=== PATIENT | female | born 1990 | race Caucasian/White ===

== ENCOUNTER → 2019-06-11 14:35 | Outpatient (CLI) | payer OTHER, SELFPAY ==
[2019-06-12 12:44] LABS: Strep Grp B PCR NEG for Grp B Strep
== END ==
PROVIDERS: Visit Provider Family Medicine
DX: Z34.83 Encounter for supervision of other normal pregnancy, third trimester (principal); Z3A.36 36 weeks gestation of pregnancy
CPT/HCPCS: 87653

== ENCOUNTER 2019-07-02 18:05 | Observation (INO) | payer OTHER, SELFPAY ==
[2019-07-02] MEDS: miSOPROStoL 25 MCG TABLET VAG (19:57)
== END 2019-07-02 20:45 | disposition home or self-care (01) ==
LOC: LABOR 18:09
PROVIDERS: Admitting Provider Family Medicine; PCP Family Medicine; Referring Provider Family Medicine; Visit Provider Family Medicine
DX: O99.89 Other specified diseases and conditions complicating pregnancy, childbirth and the puerperium (principal); Z3A.39 39 weeks gestation of pregnancy
CPT/HCPCS: G0378; G0379

== ENCOUNTER 2019-07-03 06:38 | Inpatient (IN) | payer OTHER, SELFPAY ==
--- NOTE | 2019-07-03 07:17 | P.HP_ITS ---
History of Present Illness History of Present Illness Date Patient Seen: 07/03/19 Time Patient Seen: 07:18 Chief complaint: INDUCTION Narrative: 29-year-old female G4 para 2 estimated gestational age 0207/04/2019 consistent with LMP and early ultrasound. Patient is at the labor and delivery Center for induction of labor for comfort. Patient said increasing hip and back pain in the office. And wanted to proceed with elective induction of her labor. Patient came in last night to the center for Cytotec. She had change of her cervix she was 3 cm and melinda intermittently. So she was sent home to come back this morning for Pitocin. She says she has had a good night no fevers chills headaches. She has had intermittent contractions. No difficulty with nausea vomiting. On arrival to the center her vital signs are stable she is melinda intermittently and heart tones are category 1. care risk factors include ongoing sciatic and back pain. labs hemoglobin 11.0 hematocrit 34.6 glucose testing 130 urinalysis negative for infection hepatitis-B negative hep C negative rubella immune syphilis nonreactive blood type A positive antibody screen negative quad screen testing is negative for high risk urine and GC negative chlamydia negative HIV nonreactive negative. Patient had routine follow-up during . Normal weight gain during . Routine heart tones and 20 week ultrasound shows normal anatomy scan. Past history. Patient is she has 2 living children she has never smoked never drank alcohol does not use recreational drugs no history of genital herpes tuberculosis hepatitis-B or C HIV. Patient History Medical History Ectopic (Acute ~2009) Family & Social History Family History Grandmother Diabetes mellitus Mother Multiple gestation Social History: household members spouse,children Tobacco & Substance use: Smoking Status Never smoker alcohol intake never Meds Home Medications and Allergies Home Medications Medication Instructions Recorded Confirmed Type prenat.vits,loretta,[id number] 1 tab PO DAILY 05/14/19 06/30/19 History Allergies Allergy/AdvReac Type Severity Reaction Status Date / Time No Known Drug Allergies Allergy Verified 06/30/19 14:13 Exam Vital Signs (past 8 hours): . General: Alert no apparent distress. Affect is appropriate. Melinda it is uncomfortable. HEENT: Neck is supple without lymphadenopathy pupils equal round and reactive. Cardio: S1-S2 regular rate and rhythm. Respiratory: Lungs clear to auscultation. Abdomen: Gravid. : Head vertex 3 cm 70% effaced -2 station intact Extremities: Normal deep tendon reflexes trace edema. [place]: Melinda irregularly heart tones: Category 1 heart rate 135 Assessment & Plan Assessment & Plan narrative: G4 para 2 at 39 and 6 7th weeks gestational age for induction of labor. Reviewed induction with Pitocin. Risks benefits and complication of induction of labor including increased risks of and felt induction. Go ahead and proceed with induction consent was obtained. Consent was reviewed with the patient. Orders will be written for. Expectant management of the patient and labor care as per hospital protocol.
[2019-07-03] MEDS: LACTATED RINGERS 1,000 ML 100 ML IV (07:50)
[2019-07-03] MEDS: OXYTOCIN PREMIX 30 UNIT/500 ML PLAST..BAG IV (07:51)
--- NOTE | 2019-07-03 10:45 | PM.OBPNLAB ---
Date/Time Date Patient Seen: 07/03/19 Time Patient Seen: 10:45 Pain Control Pain control: tolerating well Pelvic Exam Effacement (%): 80 station: -2 Amniotic membrane status: Ruptured Comments: Rupture of membranes clear fluid Contractions Contractions on admission: regular Monitor mode: External Status status: Category l Assessment and Plan Assessment: induction ongoing Plan: continuous present management Comments: Doing well re-evaluation category 1 tracing vital signs are stable. Rupture of membranes with clear fluid. 3 cm 80% effaced -2 station. Continue with Pitocin. Epidural when requested by the patient.
[2019-07-03 10:57] LABS: Add Manual Diff / Slide Review NO; Basophils Absolute Auto 0 /uL (0-100); Basophils Percent Auto 0.3 % (0-2); Eosinophils Absolute Auto 100 /uL (0-450); Eosinophils Percent Auto 0.9 % (2-4); Hematocrit 36.2 % (36-46); Hemoglobin 11.7 g/dL (12.0-16.0); Lymphocytes Absolute Auto 2000 /uL (1100-4500); Lymphocytes Percent Auto 18.4 % (25-40); Mean Corpuscular HGB Conc 32.3 % (30-36); Mean Corpuscular Hemoglobin 25.3 PG (26-34); Mean Corpuscular Volume 78.1 fL (80-100); Monocytes Absolute Auto 800 /uL (0-900); Monocytes Percent Auto 7.4 % (3-14); Neutrophils Absolute Auto 7900 /uL (1500-7000); Platelet Count 259 X10^3/uL (150-400); Red Blood Cell Count 4.63 X10^6/uL (4.0-5.2); Red Cell Distribution Width 16.6 % (11.6-14.8); White Blood Cell Count 10.9 X10^3/uL (4.5-11.0)
--- NOTE | 2019-07-03 12:25 | PM.OBPNLAB ---
Date/Time Date Patient Seen: 07/03/19 Time Patient Seen: 12:07 Pain Control Pain control: tolerating well and epidural Pelvic Exam Dilation (cm): 5 Effacement (%): 90 station: -1 Amniotic membrane status: Ruptured Contractions Contractions on admission: regular Monitor mode: External Status status: Category ll Assessment and Plan Assessment: active labor and induction ongoing Comments: Patient just received epidural. Blood pressure slightly low. Category 2 heart tracing. With some variable decelerations as well as early is a. Patient getting a fluid bolus because of the decelerations and IV Pitocin has been stopped. Repositioned mom. No oxygen given at this point. Has I think variable decelerations will improve with position change IV fluid and stopping of the Pitocin. Will continue to monitor closely. Patient has made fairly good cervical change at this point.
--- NOTE | 2019-07-03 14:02 | P.PNOB_ITS ---
Date/Time Date Patient Seen: 07/03/19 Pain Control Pain control: tolerating well and epidural Pelvic Exam Dilation (cm): 6 Effacement (%): 90 station: -1 Amniotic membrane status: Ruptured Contractions Monitor mode: External Status status: Category ll Assessment and Plan Assessment: induction ongoing Plan: Comments: Patient category 2 tracing now for approximately an hour. She still 6 cm. Baby's -1 station. Have reposition mom multiple times. Stop Zosyn. IV fluid bolus in oxygen going. Discussed with mom and consented for . This is her 3rd baby. 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 Will try to expedite delivery. Patient is informed and wear. If heart tones are still category 2 to category 3 we will proceed with .
--- NOTE | 2019-07-03 14:04 | P.PCN_ITS ---
Procedures Date/Time Date of procedure: 07/03/19 Time of procedure: 14:04 General Procedure description: 29-year-old 4 para 2 39 weeks and 6 7 days with induction of labor a delivery of viable male infant Apgars 8 and 9. heart tracing is category 1 and category 2. Stage I of labor approximately 6 hours. Patient was brought into the hospital for induction of labor because of maternal discomfort. On arrival to the center. heart tones were category 1 mom's vital signs were stable. Consent was obtained for Pitocin induction of labor. During stage I of labor. Patient made adequate progress during stage I. She went from 3 cm to 4 cm and then had amniotomy of clear fluid. Afterwards her contractions became uncomfortable and she received an epidural anesthesia with good comfort. She continued to progress nicely. In approximately noon after epidural. Patient's category of heart tracing change from category 1 to category 2 with variable and then some early D cells then progressing to late T-cells. Patient is was re- examined and her cervix was found to be 6-7 cm. She then had rotation of body position and IV fluid bolus was given oxygen with given and her Pitocin was stopped. Her approximately 1 hour her category 2 tracing was closely monitored. And baby made for no further descent at 6 cm. At that point patient was discussed about potential operation for delivery of her baby because of category of tracing consent was obtained discussion and patient was made ready for the OR. As we were waiting for this mom felt more uncomfortable contractions and baby's head appeared turn and descend into the canal from -1 station to +1 station rather rapidly. And became complete. Stage II of labor approximately 10 minutes. Once mom became complete category tracing was 2. Mom pushed and baby was distended rapidly through the canal to complete and delivery of head in vertex position with occiput anterior. The delivery of the head there was a nuchal cord which was reduced over the top of the head and baby was delivered without difficulty after that. Baby was placed on the abdomen. Cord was cut and clamped after it decreased pulsating. The time of delivery baby had spontaneous cry vigorous good tone and color and Apgars were deemed to be 8 and 9. Stage III of labor. Patient was given IM post Pitocin 10 units. Fundal massage occurred. Expectant of cervix and vagina showed no significant lacerations delivery of intact placenta after 10 minutes. Mom and baby resting comfortably.
[2019-07-03 19:36] VITALS: BP 121/82
[2019-07-04] MEDS: IBUPROFEN 600 MG TABLET PO (01:48)
[2019-07-04 07:06] LABS: Hematocrit 35.8 % (36-46); Hemoglobin 11.3 g/dL (12.0-16.0)
[2019-07-04] MEDS: PRENATAL VIT,CALC/IRON/FOLIC 1 TABLET 1 TAB PO (08:50)
--- NOTE | 2019-07-04 08:51 | P.DS_ITS ---
History of Present Illness History of Present Illness Chief complaint: INDUCTION Narrative: 29-year-old female G4 para 2 estimated gestational age 0207/04/2019 consistent with LMP and early ultrasound. Patient is at the labor and delivery Center for induction of labor for comfort. Patient said increasing hip and back pain in the office. And wanted to proceed with elective induction of her labor. Patient came in last night to the center for Cytotec. She had change of her cervix she was 3 cm and melinda intermittently. So she was sent home to come back this morning for Pitocin. She says she has had a good night no fevers chills headaches. She has had intermittent contractions. No difficulty with nausea vomiting. On arrival to the center her vital signs are stable she is melinda intermittently and heart tones are category 1. care risk factors include ongoing sciatic and back pain. labs hemoglobin 11.0 hematocrit 34.6 glucose testing 130 urinalysis negative for infection hepatitis-B negative hep C negative rubella immune syphilis nonreactive blood type A positive antibody screen negative quad screen testing is negative for high risk urine and GC negative chlamydia negative HIV nonreactive negative. Patient had routine follow-up during . Normal weight gain during . Routine heart tones and 20 week ultrasound shows normal anatomy scan. Past history. Patient is she has 2 living children she has never smoked never drank alcohol does not use recreational drugs no history of genital herpes tuberculosis hepatitis-B or C HIV. Discharge Providers Provider Date of admission: 07/03/19 06:38 Primary care physician: Eudar Garcia MD Consults: 07/04/19 14:09 Consult to Cutter Operator Helper Routine Comment: Discharge provider: Eduar Garcia MD Summary Hospital Course Discharge Diagnosis: 29-year-old G4 para 3 term with induction of labor delivery of viable male infant Routine hospital post vaginal delivery care Hospital Course: Patient was admitted the hospital for induction of labor. Patient progressed nicely and delivered a viable male without complications. Post vaginal delivery care was at routine. Baby's vital signs were stable baby was afebrile breast-feeding well. Positive bowel movements and urination. Time of discharge weight 8 lb 5 oz. Mom feel comfortable with breast-feeding. [place] screening tests were pending at the time of this dictation. Exam Narrative Exam Narrative: Vitals: [Pulse 68 respiratory rate 18 temperature 9 8.8 input 2400 output 1800]. General: Alert no apparent distress. Affect is appropriate. Melinda it is uncomfortable. HEENT: Neck is supple without lymphadenopathy pupils equal round and reactive. Cardio: S1-S2 regular rate and rhythm. Respiratory: Lungs clear to auscultation. Abdomen: Uterus firm. Extremities: Normal deep tendon reflexes trace edema. Objective Labs Result Diagrams: 07/04/19 06:30 Labs: Laboratory Results - last 24 hr 07/03/19 07/03/19 07/04/19 10:35 10:35 06:30 WBC 10.9 RBC 4.63 Hgb 11.7 L 11.3 L Hct 36.2 35.8 L MCV 78.1 L MCH 25.3 L MCHC 32.3 RDW 16.6 H Plt Count 259 Neut % (Auto) 73.0 Lymph % (Auto) 18.4 L [place] % (Auto) 7.4 Eos % (Auto) 0.9 L Baso % (Auto) 0.3 Neut # (Auto) 7900 H Lymph # (Auto) 2000 [place] # (Auto) 800 Eos # (Auto) 100 Baso # (Auto) 0 Blood Type A Positive Antibody Screen Negative Discharge Plan Discharge Plan Patient Disposition: Home Discharge orders & Medications Prescriptions: No Action prenat.vits,loretta,[id number] Tablet 1 tab PO DAILY RF: 0 Follow up/Referrals: Eduar Garcia MD [Primary Care Provider] - Visit Report/Discharge Packet Visit Report Forms: Patient Portal/API, Stroke Signs & Symptoms Discharge Data Primary Care Provider: Eduar Garcia
[2019-07-04 09:15] VITALS: BP 115/71; PULSE 80; RESP 17; TEMP 36.3
== END 2019-07-04 12:20 | disposition home or self-care (01) | DRG 807 ==
PROVIDERS: Admitting Provider Family Medicine; PCP Family Medicine; Referring Provider Family Medicine; Visit Provider Family Medicine
DX: O99.89 Other specified diseases and conditions complicating pregnancy, childbirth and the puerperium (principal); Z37.0 Single live birth; Z3A.39 39 weeks gestation of pregnancy; O69.1XX0 Labor and delivery complicated by cord around neck, with compression, not applicable or unspecified; M54.30 Sciatica, unspecified side
CPT/HCPCS: 01967; 36415; 59050; 59410; 85014; 85018; 85025; 86850; 86900; 86901; G0378; G0379; J2590

== ENCOUNTER → 2020-03-17 13:48 | Outpatient (CLI) | payer OTHER, SELFPAY ==
--- NOTE | 2020-03-17 13:48 | DI.US.S_ITS ---
PROCEDURE: US OB LIMITED INDICATIONS: Initial US for Dating and Viability sushant please OUTSIDE/PRIOR DATING DATA: Last menstrual period (LMP): Not available. LMP-based estimated date of delivery (ANEL): Not available . First dating scan (date and location): 03/17/20 . Estimated date of delivery (ANEL) from first dating scan: 08/15/20 . TECHNIQUE: Real-time scanning was performed of the fetus, with image documentation and biometric measurements. Endovaginal scanning: Not needed COMPARISON: None. FINDINGS: General: A single living intrauterine gestation is present. Presentation: Variable. Placenta: Placental position is anterior , without previa. Amniotic fluid index: 18.0 cm, normal range is 5-24 cm. heart rate: 160 beats per minute. Maternal cervical canal: 5.4 cm long. Normal lower limit is 2.5 cm. biometrics: Biparietal diameter: 4.1 cm, 18 weeks 4 days Head circumference: 15.0 cm, 18 weeks 0 days Abdominal circumference: 13.5 cm, 18 weeks 6 days Femur length: 27.0 cm, 18 weeks 1 day Estimated gestational age from initial scan: not applicable. Composite gestational age from present scan: 18 weeks 3 days Estimated weight: 244 g Measurement variability for biometric dating: +/- 7 days from 14 weeks to 15 weeks 6 days gestation, +/- 10 days from 16 weeks to 21 weeks 6 days gestation, +/- 2 weeks from 22 weeks to 27 weeks 6 days gestation, +/- 3 weeks for 28 weeks gestation or later. weight reference: 4500 g or EFW >90/95% is considered macrosomia or large for gestational age. EFW <10% is small for gestational age. EFW 5% or less is considered intra-uterine growth restriction. Other: Limited quality anatomic visualization, full anatomic survey is recommended to be performed at 20 weeks gestation.. IMPRESSION: No early OB ultrasound study is available for review. From this study the estimated current gestational age is 18 weeks 3 days. Delivery date is projected to be centered on 08/15/20. The anatomic survey is very limited, no definite anomaly is seen but full anatomic survey is recommended at 20 weeks gestation. Dictated by: Lionel Carpenter M.D. on 03/17/2020 at 16:44 Approved by: Lionel Carpenter M.D. on 03/17/2020 at 16:48
== END ==
PROVIDERS: PCP Family Medicine; Referring Provider Family Medicine; Visit Provider Family Medicine
DX: Z36.87 Encounter for antenatal screening for uncertain dates (principal); Z3A.18 18 weeks gestation of pregnancy
CPT/HCPCS: 76815

== ENCOUNTER → 2020-03-30 09:05 | Outpatient (CLI) | payer OTHER, SELFPAY ==
--- NOTE | 2020-03-30 09:06 | DI.US.S_ITS ---
PROCEDURE: US OB >= 14 WEEKS FETUS INDICATIONS: Anatomy Scan OUTSIDE/PRIOR DATING DATA: Last menstrual period (LMP): Not available. LMP-based estimated date of delivery (ANEL): Not available . First dating scan (date and location): 03/17/20 . Estimated date of delivery (ANEL) from first dating scan: 08/15/20 . TECHNIQUE: Real-time scanning was performed of the fetus, with image documentation and biometric measurements. Endovaginal scanning: Not needed COMPARISON: None. FINDINGS: General: A single living intrauterine gestation is present. Presentation: Transverse head right. Placenta: Placental position is anterior , without previa. Amniotic fluid index: 16.1 cm, normal range is 5-24 cm. heart rate: 163 beats per minute. Maternal cervical canal: 4.1 cm long. Normal lower limit is 2.5 cm. biometrics: Biparietal diameter: 4.6 cm, 19 weeks 6 days Head circumference: This teen 0.9 cm, 19 weeks 4 days Abdominal circumference: 14.7 cm, 20 weeks 0 days Femur length: 3.2 cm, 19 weeks 6 days Estimated gestational age from initial scan: 20 weeks 2 days Composite gestational age from present scan: 19 weeks 6 days Estimated weight and percentile: 319 g, 25th percentile Measurement variability for biometric dating: +/- 7 days from 14 weeks to 15 weeks 6 days gestation, +/- 10 days from 16 weeks to 21 weeks 6 days gestation, +/- 2 weeks from 22 weeks to 27 weeks 6 days gestation, +/- 3 weeks for 28 weeks gestation or later. weight reference: 4500 g or EFW >90/95% is considered macrosomia or large for gestational age. EFW <10% is small for gestational age. EFW 5% or less is considered intra-uterine growth restriction. Anatomic survey: Neuro: Ventricles are non-dilated at less than 10 mm. Cisterna magna is normal at 3-11 mm. Cerebellum is normal in size and morphology. Nuchal skin fold: Normal at less than 6 mm between 14-21 weeks gestational age. Face: Nose and lips, facial profile are normal. Spine: No evidence for spina bifida. Heart: 4-chambered heart is present, with normal ventricular outflow tracts. Diaphragm: Diaphragm is intact. Stomach: Left-sided stomach is present. Kidneys: No hydronephrosis. Normal is less than 5 mm in 2nd trimester, less than 7 mm in 3rd trimester. Cord: 3-vessel cord has orthotopic insertion. Bladder: Normal in size. Extremities: All 4 extremities identified. IMPRESSION: Single living intrauterine gestation with normal survey of added at a ky, and appropriate interval growth. The delivery date is projected to be centered on 08/15/20 Dictated by: Lionel Carpenter M.D. on 03/30/2020 at 11:36 Approved by: Lionel Carpenter M.D. on 03/30/2020 at 11:39
== END ==
PROVIDERS: PCP Family Medicine; Referring Provider Family Medicine; Visit Provider Family Medicine
DX: Z34.82 Encounter for supervision of other normal pregnancy, second trimester (principal); Z3A.19 19 weeks gestation of pregnancy
CPT/HCPCS: 76811

== ENCOUNTER → 2020-05-26 13:56 | Outpatient (CLI) | payer OTHER, SELFPAY ==
[2020-05-26 15:35] LABS: Hematocrit 36.8 % (36-46)
[2020-05-26 16:00] LABS: GTT (PREG) 1 Hour PP 50gm Dose 112 mg/dL (76-139)
== END ==
PROVIDERS: PCP Family Medicine; Referring Provider Family Medicine; Visit Provider Family Medicine
DX: Z34.82 Encounter for supervision of other normal pregnancy, second trimester (principal); Z3A.23 23 weeks gestation of pregnancy
CPT/HCPCS: 36415; 82950; 85014; 85018

== ENCOUNTER → 2020-06-23 16:09 | Outpatient (CLI) | payer OTHER, SELFPAY ==
[2020-06-23 20:38] LABS: Urine N gonorrhoeae NOT DETECTED
[2020-06-23 20:41] LABS: Urine Chlamydia NOT DETECTED
== END ==
PROVIDERS: PCP Family Medicine; Visit Provider Family Medicine
DX: Z34.83 Encounter for supervision of other normal pregnancy, third trimester (principal); Z11.3 Encounter for screening for infections with a predominantly sexual mode of transmission; Z11.8 Encounter for screening for other infectious and parasitic diseases; Z3A.34 34 weeks gestation of pregnancy
CPT/HCPCS: 87077; 87086; 87491; 87591

== ENCOUNTER → 2020-07-21 16:05 | Outpatient (CLI) | payer OTHER, SELFPAY ==
[2020-07-22 11:04] LABS: Strep Grp B PCR NEG for Grp B Strep
== END ==
PROVIDERS: PCP Family Medicine; Visit Provider Family Medicine
DX: Z34.83 Encounter for supervision of other normal pregnancy, third trimester (principal); Z3A.36 36 weeks gestation of pregnancy
CPT/HCPCS: 87653

== ENCOUNTER 2020-08-12 12:00 | Inpatient (IN) | payer OTHER, SELFPAY ==
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
[2020-08-12] MEDS: LACTATED RINGERS 1,000 ML 100 ML IV (13:45)
[2020-08-12 13:54] LABS: Add Manual Diff / Slide Review NO; Basophils Absolute Auto 100 /uL (0-100); Basophils Percent Auto 0.8 % (0-2); Eosinophils Absolute Auto 100 /uL (0-450); Eosinophils Percent Auto 0.9 % (2-4); Hematocrit 34.6 % (36-46); Hemoglobin 11.1 g/dL (12.0-16.0); Lymphocytes Absolute Auto 1700 /uL (1100-4500); Lymphocytes Percent Auto 14.6 % (25-40); Mean Corpuscular Hemoglobin 24.2 PG (26-34); Mean Corpuscular Volume 75.7 fL (80-100); Monocytes Absolute Auto 1000 /uL (0-900); Monocytes Percent Auto 8.1 % (3-14); Neutrophils Absolute Auto 8900 /uL (1500-7000); Neutrophils Percent Auto 75.6 % (50-75); Platelet Count 280 X10^3/uL (150-400); Red Blood Cell Count 4.58 X10^6/uL (4.0-5.2); Red Cell Distribution Width 16.8 % (11.6-14.8); White Blood Cell Count 11.8 X10^3/uL (4.5-11.0)
[2020-08-12] MEDS: OXYTOCIN PREMIX 30 UNIT/500 ML PLAST..BAG IV (14:22)
[2020-08-12 14:24] LABS: COVID19 - ADMIT (NP swab/PCR) Negative (Negative)
[2020-08-12 14:29] VITALS: BP 108/60
--- NOTE | 2020-08-12 15:23 | PM.OBPNLAB ---
Date/Time Date Patient Seen: 08/12/20 Time Patient Seen: 15:23 Pain Control Pain control: tolerating well Pelvic Exam Dilation (cm): 2 Effacement (%): 7 station: -2 Amniotic membrane status: Intact Contractions Contractions on admission: irregular Monitor mode: External Pitocin rate (mU/min): 6 Contraction frequency (min): 5 Contraction pattern: Irregular Status status: Category ll Heart Rate Baseline: 150 Monitor Accelerations: Prolonged Monitor Decelerations: Absent Monitor Variability: Marked Assessment and Plan Assessment: induction ongoing Plan: continuous present management Comments: Patient still having times of some mild tachycardia. Category 2 tracing tracing is a little bit unusual. Reviewed case with Dr. Ulrich. Fluid bolus given. Patient no bleeding or spotting. Pitocin started. Remains afebrile.
--- NOTE | 2020-08-12 18:13 | PM.OBPNLAB ---
Date/Time Date Patient Seen: 08/12/20 Time Patient Seen: 16:51 Pelvic Exam Dilation (cm): 4 Effacement (%): 7 station: -2 Amniotic membrane status: Intact Contractions Contractions on admission: none Monitor mode: External Pitocin rate (mU/min): 8 Contraction frequency (min): 5 Contraction pattern: Regular Contraction phase: Resting Contraction intensity: Moderate Status status: Category l Heart Rate Baseline: 150 Monitor Accelerations: Present Monitor Decelerations: Absent Assessment and Plan Assessment: induction ongoing Plan: continuous present management Comments: pt doing well requesting epidural.
--- NOTE | 2020-08-12 19:55 | PM.OBPNLAB ---
Date/Time Date Patient Seen: 08/12/20 Time Patient Seen: 19:55 Pain Control Pain control: tolerating well and epidural Pelvic Exam Dilation (cm): 5 Effacement (%): 80 station: -1 Amniotic membrane status: Ruptured Contractions Monitor mode: External Pitocin rate (mU/min): 12 Contraction frequency (min): 4 Contraction pattern: Regular Contraction phase: Resting Contraction intensity: Strong/Firm Status status: Category l Heart Rate Baseline: 140 Monitor Accelerations: Present Assessment and Plan Assessment: active labor
--- NOTE | 2020-08-12 21:25 | P.PCN_ITS ---
Procedures Date/Time Date of procedure: 08/12/20 Time of procedure: 21:25 General Procedure description: Stage I of labor approximately 6 hours. Category 1 category 2 tracing. Some tachycardia. Improved with hydration and fluid bolus to mom. Patient had Pitocin augmentation induction of her labor. She had good response to the Pitocin. Received an epidural with adequate anesthesia response. Vital signs were stable throughout GBS status was negative. She was afebrile. During stage II of labor she had rupture amniotic membranes with clear fluid. She made good and normal progress through to cervical dilation and descent through the the canal. Stage II of labor approximately 5 minutes. Patient became complete and delivered almost immediately afterwards. Patient had reassuring heart toes baby was delivered spontaneously placed on the mother's abdomen. Had vigorous lusty cry. Delayed cord clamping happen. There was no vaginal lacerations. Stage III of labor delivery of intact placenta approximately 5 minutes. Three- vessel cord. Uterus was firm. Pitocin was ran in the bag. Estimated blood loss was 5 cc baby's Apgars were 8 and 9.
[2020-08-12] MEDS: IBUPROFEN 600 MG TABLET PO (23:49)
[2020-08-13] MEDS: IBUPROFEN 600 MG TABLET PO ×3 (06:05→18:37)
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
[2020-08-13] MEDS: PRENATAL VIT,CALC/IRON/FOLIC 1 TABLET 1 TAB PO (09:58)
[2020-08-13 19:31] VITALS: BP 116/79; PULSE 75; RESP 18; TEMP 36.7
== END 2020-08-13 20:45 | disposition home or self-care (01) | DRG 805 ==
PROVIDERS: Admitting Provider Family Medicine; PCP Family Medicine; Referring Provider Family Medicine; Visit Provider Family Medicine
DX: O48.0 Post-term pregnancy (principal); O99.42 Diseases of the circulatory system complicating childbirth; Z37.0 Single live birth; Z3A.40 40 weeks gestation of pregnancy; R00.0 Tachycardia, unspecified; O76 Abnormality in fetal heart rate and rhythm complicating labor and delivery; Z20.822 Contact with and (suspected) exposure to COVID-19; O99.284 Endocrine, nutritional and metabolic diseases complicating childbirth; E05.90 Thyrotoxicosis, unspecified without thyrotoxic crisis or storm
CPT/HCPCS: 01967; 36415; 59050; 59400; 85025; 86850; 86900; 86901; 87635; C9803; G0379; J2590